=== PATIENT | female | born 1935 | race Two or more races ===

== ENCOUNTER 2017-12-09 04:59 | Day surgery (SDC) | payer OTHER ==
[~2017-12-09 04:59] MED LIST: AMBIEN5 MG; FOLIC ACID0.8 MG PO; GEMFIBROZIL600 MG PO; HALOPERIDOL1 MG PO; HYZAAR 100/25 T1 TAB PO; KEFLEX500 MG PO; LOPERAMIDE2 M1; OSTERA TABLET1 EACH PO; TAMS0.4C PO; ZOCOR40 MG
== END 2017-12-09 10:00 | disposition home or self-care (01) ==
LOC: CIR.AMB 04:59
DX: N60.12 Diffuse cystic mastopathy of left breast (principal)

== ENCOUNTER 2018-04-12 09:14 | Outpatient (CLI) | payer OTHER ==
[~2018-04-12] VITALS: Ht 157.5 cm; Wt 58.1 kg
== END 2018-04-12 09:30 | disposition home or self-care (01) ==
LOC: OFIC 805 09:14
DX: L30.8 Other specified dermatitis (principal); H90.3 Sensorineural hearing loss, bilateral; H61.23 Impacted cerumen, bilateral